=== PATIENT | male | born 2000 | race Hispanic/Latino ===

== ENCOUNTER 2024-06-13 22:17 | Emergency (ER) | payer SELFPAY ==
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
[2024-06-13 22:30] VITALS: BP 142/66
== END 2024-06-13 23:10 | disposition home or self-care (01) ==
LOC: EMR 22:17
PROVIDERS: EMERGENCY PHYSICIAN Emergency Medicine
DX: S30.851A Superficial foreign body of abdominal wall, initial encounter (principal); T75.4XXA Electrocution, initial encounter; F10.129 Alcohol abuse with intoxication, unspecified; Z65.3 Problems related to other legal circumstances; F99 Mental disorder, not otherwise specified; Z02.79 Encounter for issue of other medical certificate; J45.909 Unspecified asthma, uncomplicated; F17.200 Nicotine dependence, unspecified, uncomplicated; Z88.0 Allergy status to penicillin
CPT/HCPCS: 99282

== ENCOUNTER 2025-01-18 13:50 | Emergency (ER) | payer SELFPAY ==
[2025-01-18 14:18] VITALS: BP 147/100
[2025-01-18 14:55] LABS: % Basophils 1.2 % (0-2); % Eosinophils 1.6 % (0-6); % Immature Granulocytes 0.1 % (0-0.5); % Lymphocytes 44.2 % (20.5-51.1); % Monocytes 6.9 % (1.7-9.3); Absolute Basophils 0.1 10^3/uL (0-0.2); Absolute Eosinophils 0.1 10^3/uL (0-0.7); Absolute Monocytes 0.5 10^3/uL (0.1-0.6); Absolute Neutrophils 3.1 10^3/uL (1.4-6.5); Hematocrit 47.5 % (39.0-52.0); Hemoglobin 16.5 g/dL (13.0-18.0); Mean Corp Hgb Conc. 34.7 g/dL (33.0-37.0); Mean Corpuscular Hgb 28.7 pg (27.0-31.0); Mean Corpuscular Volume 82.6 fL (80.0-94.0); Nucleated Red Blood Cells % 0 % (-); Platelet Count 297 10^3/uL (130-400); Red Blood Cell Count 5.75 10^6/uL (4.70-6.10); Red Cell Dist. Width 13.2 % (11.5-14.5); White Blood Cell Count 6.8 10^3/uL (4.8-10.8)
[2025-01-18 15:12] LABS: ALT (SGPT) 141 U/L (0-50); AST (SGOT) 83 U/L (17-59); Albumin 5.2 g/dl (3.5-5.0); Alkaline Phosphatase 92 U/L (38-126); Blood Urea Nitrogen 2 mg/dl (9-20); Calcium 9.4 mg/dl (8.4-10.2); Carbon Dioxide 23 mmol/L (22-30); Chloride 99 mmol/L (98-107); Glucose 103 mg/dl (70-99); Potassium 3.9 mmol/L (3.5-5.1); Sodium 139 mmol/L (135-145); Total Bilirubin 1.1 mg/dl (0.2-1.3); eGFR > 60.00
[2025-01-18 17:38] VITALS: BP 143/98
[2025-01-18 18:00] VITALS: BP 146/99
[2025-01-18] MEDS: MULTIVITAMIN 1011 ML IV (18:07)
[2025-01-18] MEDS: MULTIVITAMIN 1011 MG IV (18:07)
[2025-01-18 18:08] VITALS: BMI 38.9
[2025-01-18 18:12] VITALS: BMI 37.4
[2025-01-18 18:36] VITALS: BP 123/94
[2025-01-18 18:52] LABS: TSH Reflex To Free T4 0.75 uIU/ml (0.47-4.68)
[2025-01-18 19:00] VITALS: BP 135/95
[2025-01-18 20:00] VITALS: BP 136/81
--- NOTE | 2025-01-18 20:32 | ED.GENMED ---
History of Present Illness
General
Chief Complaint: Alcohol Problem
Source: patient
Exam Limitations: none
Time Seen by Provider: 01/18/25 17:02
History of Present Illness
History of Present Illness:
24-year-old male with years of episodes of heart racing palpitations. At times a sharp abdominal pain. Recently had some pain and weakness of the left leg that is improving. Also complains of tingling and posterior head pain. All these issues
have been ongoing. Biggest issue appears to be chronic alcohol use and realizing that he needs help for this issue. He is followed in . He does not want inpatient management. He is not describing acute withdrawal symptoms.
Past History
Past History
ED Past Medical History: Asthma and Psychiatric
ED Past Surgical History: None
Social History
Tobacco: Smoker
Alcohol: None
Drug: None
Personal: Single
Living: with family
Employment: Employed
Family History
Family History: Other
Review of Systems
Review of Systems
All Other Systems: Not applicable
Constitutional: Denies fever
Respiratory: Reports no symptoms
Cardiac: Denies diaphoresis or syncope
Phy Exam
Physical Exam
Physical Exam:
GENERAL: Alert and oriented in no apparent distress
EYE: Orbits normal.
NECK: Supple, no significant adenopathy.
ENT: Pharynx without erythema
CARDIAC: Regular rate and rhythm without any obvious murmurs.
LUNGS: Clear breath sounds,normal
ABDOMEN: Soft, without focal tenderness or distention
NEUROLOGICAL: Alert and oriented , cranial nerves II through XII intact. Gait normal. Good lower extremity strength. Good upper extremity strength.
SKIN: Warm and dry, no rash or lesion, no discoloration, skin intact.
MUSCULOSKELETAL: No edema,no deformity.Good color
PSYCH: Normal and appropriate interaction.
Scores
Withdrawal Assessment of Alcohol
Withdrawal Assessment Completed?: Yes
Nausea and Vomiting: No nausea and no vomiting
Tactile Disturbances: None
Tremor: No tremor
Auditory Disturbances: Not present
Paroxysmal Sweats: No sweat visible
Visual Disturbances: Not present
Anxiety: Mild anxiety
Headache, Fullness in Head: Very mild
Agitation: Normal activity
Orientation and clouding of sensorium: Oriented and can do serial additions
Total CIWA Score: 2
Alcohol Withdrawal Medication Recommendation: Equal to MSAS Score 0-4. Monitor & re-assess q2hrs, NO MEDICATION NEEDED
Course
Orders/Labs/Results
Orders:
Orders
01/18/25 13:52
ECG [Electrocardiogram (*1)] Urgent
Reason for Study: Palpitations
EKG- Treatment ONCE
01/18/25 14:31
Complete Blood Count/With Diff Urgent
Comprehensive Metabolic Panel Urgent
TSH Reflex To Free T4 Urgent
Comment: ADDON
01/18/25 17:32
Electrocardiogram (*1) Stat
Reason for Study: Other
Other Reason for Exam: chest pain
CT Head W/o Iv Contrast Urgent
Comment:
Reason For Exam: Transient left leg weakness/posterior headache
Cardiac Monitoring- Treatment ONCE
01/18/25 17:33
Add On- LAB Urgent
Tests Added?: tsh reflex t4
01/18/25 18:00
0.9% Sodium Chloride 1000 ml [Nss] 1,000 ml Mvi, Adult [Multivitamin] 10 ml Thiamine Injection 100 mg IV Wide Open mls/hr
01/18/25 19:19
EKG [Electrocardiogram (*1)] Stat
Reason for Study: Chest Pain
EKG- Treatment ONCE
Abnormal Lab Results
01/18/25
14:31
BUN 2 L mg/dl
(9-20)
Glucose 103 H mg/dl
(70-99)
AST 83 H U/L
(17-59)
ALT 141 H U/L
(0-50)
Albumin 5.2 H g/dl
(3.5-5.0)
01/18/25 14:31
01/18/25 14:31
Vital Signs
Initial and Last Documented VS:
Initial Vital Signs
Temp Pulse Resp BP Pulse Ox
98.0 F 88 18 147/100 97
01/18/25 14:18 01/18/25 14:18 01/18/25 14:18 01/18/25 14:18 01/18/25 14:18
Last Documented Vital Signs
Temp Pulse Resp BP Pulse Ox
98.6 F 81 16 136/81 96
01/18/25 20:04 01/18/25 20:15 01/18/25 20:15 01/18/25 20:00 01/18/25 20:15
*Radiology
Radiology exam reviewed: radiology read reviewed (Negative)
*Pulse Oximetry
Patient hypoxic: no
*EKG
Interpreted by ED Provider?: Yes
Interpretation: normal
Comparison EKG: changes noted
Heart Rate: 91
Rate: normal
Rhythm: sinus
Leon: normal axis
Interval: normal interval
QRS Pattern: normal QRS
Ischemia: no ischemia
*Um Rn Interpretation
Rate: normal
Interpretation: normal
Heart Rate: 80
Rhythm: sinus
*Critical Care Note
Total Time (30-74mins, 75-104mins- exclusive of procedures): Not Applicable
Update Note
Update Note:
I cannot find any serious issues. Neurologically stable. Head CT negative. Labs normal except for a mild transaminitis secondary to alcohol use. Stable to follow-up. Patient was also seen by Manjinder cruz
ED Attending Note
-
Portions of this chart may have been created with voice recognition software.� Occasional wrong word or��sound alike� substitutions may have occurred due to the inherent limitations of voice recognition software.
Discharge Plan
Departure
Patient Disposition: Home (Routine Discharge)
Date of Disposition: 01/18/25
Time of Disposition: 20:33
Patient with high blood pressure during this ER visit?: Yes
Discharge Problem:
Alcohol use disorder, Palpitations
Instructions: Alcohol Use Disorder (DC), Palpitations ED, BLOOD PRESSURE
Prescriptions:
No Action
albuterol sulfate 1 PUFF HFA aerosol inhaler
1 puff inhalation R Q4HPRN PRN (Reason: asthma)
ondansetron 4 MG tablet,disintegrating
4 mg PO Q8HPRN PRN (Reason: Nausea/vomiting) Qty: 15 0RF
ibuprofen 600 MG tablet
600 mg PO Q6H PRN (Reason: pain) Qty: 30 0RF
Rx Instructions:
Take 1 tablet, every 6 hours for pain on a scale of 8-10
acetaminophen [Tylenol Extra Strength] 500 MG tablet
1,000 mg PO Q6HPRN PRN (Reason: pain) Qty: 30 0RF
Rx Instructions:
Take two tables (1000mg) every 6 hours as needed for pain on a scale of 3-7.
doxycycline hyclate 100 MG capsule
100 mg PO Q12 7 Days Qty: 13 0RF
sulfamethoxazole-trimethoprim [Bactrim DS] 800-160 mg tablet
1 tab PO BID Qty: 14 0RF
Referrals:
[facility] [Provider Group] - Next open appointment
NONE,* [Family Provider] -
Interventions
Interventions:
*Risk Screen - Suicide Last Done: 01/18/25 18:01
*General Assessment Last Done: 01/18/25 18:01
*Neglect/Abuse Screening Last Done: 01/18/25 18:01
ED- Fall Risk Assessment Last Done: 01/18/25 19:28
*ED COVID-19 Vaccine History Last Done: 01/18/25 18:01
*Nursing Disposition Last Done: 01/18/25 20:41
ED- Neurological Assessment Last Done: 01/18/25 19:28
ED-Psychological Assessment Last Done: 01/18/25 19:28
Discharge Date and Time
Print Language: EQUATORIAL GUINEAN
== END 2025-01-18 20:43 | disposition home or self-care (01) ==
LOC: EMR 13:50
PROVIDERS: Student in an Organized Health Care Education/Training Program; EMERGENCY PHYSICIAN Emergency Medicine
DX: F10.20 Alcohol dependence, uncomplicated (principal); R00.2 Palpitations; R20.2 Paresthesia of skin; F17.200 Nicotine dependence, unspecified, uncomplicated; J45.909 Unspecified asthma, uncomplicated
CPT/HCPCS: 99284; 96365; 70450; 80053; 84443; 85025; 93005